=== PATIENT | female | born 1940 | race Caucasian/White ===

== ENCOUNTER → 2018-02-15 | Outpatient (CLI) | payer MEDICARE, BC ==
[~2018-02-15] MED LIST: ACET325UDC PO; ALPHA-LIPOIC ACID PO; AMLO5 PO; BOSWELIA; BOSWELIA PO; CALCIT950 PO; CARB100; CARB1TAB14 PO; CARBLEV25 PO; CHRO200 PO; CLON.5 PO; CYAN1000 PO; DHEA PO; DILT60 PO; ESOM20 PO; FEXPSEER PO; FISH1000 PO; GAS-X PO; GLUCHON PO; HYDCHL12.5 PO; HYDR1TAB94 PO; ISOMON20; ISRA5 PO; LEVSOD112 PO; LEVSOD125 PO; LIOT25 PO; MELA3 PO; MSM PO; MSM1000 PO; NEBI5 PO; NITR.6SL SL; NITRSPRAY SL; Nitrostat0.4 MG SL; PRAM.5 PO; PROLIA IM; RASA1 PO; RISE35 PO; UBID100 PO; VALS80 PO; WARF1 PO; WARF3 PO; WARF4 PO; [UNRECOGNIZED DRUG - MIXTURE] PO; [UNRECOGNIZED DRUG - OTHER]; [UNRECOGNIZED DRUG - OTHER] PO
[2018-02-16 14:16] LABS: Protein, Urine Quantitative 8.6 mg/dL (0.0-11.9)
[2018-02-16 14:19] LABS: Microalbumin, Urine Quant. 6.89 mg/L (0.000-20.000)
== END | disposition home or self-care (01) ==
LOC: LAB 13:16 → LAB FUT 02-13 15:40
PROVIDERS: Internal Medicine Nephrology
DX: N18.2 Chronic kidney disease, stage 2 (mild) (principal); D63.1 Anemia in chronic kidney disease; N25.81 Secondary hyperparathyroidism of renal origin; E55.9 Vitamin D deficiency, unspecified; E78.00 Pure hypercholesterolemia, unspecified; R76.9 Abnormal immunological finding in serum, unspecified; R94.5 Abnormal results of liver function studies; D51.8 Other vitamin B12 deficiency anemias; D52.8 Other folate deficiency anemias; D50.9 Iron deficiency anemia, unspecified
CPT/HCPCS: 81050; 82043; 84156

== ENCOUNTER → 2018-07-21 | Outpatient (CLI) | payer MEDICARE, BC ==
[2018-07-21 15:50] LABS: BASOPHILS ABSOLUTE AUTO 0.02 K/mm3 (0.00-0.23); BASOPHILS PERCENT AUTO 0 % (0-2); EOSINOPHILS ABSOLUTE AUTO 0.03 K/mm3 (0.00-0.68); EOSINOPHILS PERCENT AUTO 0 % (0-6); Hematocrit 34.9 % (33.0-51.0); Hemoglobin 11.8 g/dL (11.5-16.0); IMMATURE GRAN ABSOLUTE AUTO 0.01 K/mm3 (0.00-0.10); IMMATURE GRAN PERCENT AUTO 0 % (0-1); LYMPHOCYTES ABSOLUTE AUTO 0.92 K/mm3 (0.84-5.20); LYMPHOCYTES PERCENT AUTO 11 % (21-46); MONOCYTES ABSOLUTE AUTO 0.95 K/mm3 (0.16-1.47); MONOCYTES PERCENT AUTO 11 % (4-13); Mean Corpuscular HGB 32.6 pg (26.0-34.0); Mean Corpuscular HGB Conc 33.8 g/dL (31.5-36.5); Mean Corpuscular Volume 96 fL (80-100); Mean Platelet Volume 10.2 fL (9.1-12.4); NEUTROPHILS ABSOLUTE AUTO 6.48 K/mm3 (1.96-9.15); NEUTROPHILS PERCENT AUTO 77 % (41-73); Platelet Count 198 K/mm3 (150-400); RDW Coefficient Variation 12.5 % (11.7-14.2); RDW Standard Deviation 44.1 fL (35.1-46.3); Red Blood Cell Count 3.62 M/mm3 (3.80-5.20); White Blood Cell Count 8.41 K/mm3 (4.00-11.30)
[2018-07-21 15:55] LABS: Anion Gap 9 mmol/L (6-16); Blood Urea Nitrogen 19 mg/dL (8-24); Bun/Creatinine Ratio 27.5 (12.0-20.0); CO2, Blood 26 mmol/L (21-32); Calcium, Blood 9.1 mg/dL (8.5-10.1); Chloride, Blood 95 mmol/L (98-108); Creatinine, Blood 0.69 mg/dL (0.40-1.00); Glomerular Filtration Rate >60 (60-); Glucose, Blood 106 mg/dL (70-99); Potassium, Blood 4.3 mmol/L (3.5-5.5); Sodium, Blood 130 mmol/L (136-145)
== END | disposition home or self-care (01) ==
LOC: LAB SHORT 15:46 → LAB EV 15:46
PROVIDERS: Physician Assistant Surgical
DX: R53.83 Other fatigue (principal)
CPT/HCPCS: 80048; 85025

== ENCOUNTER 2018-11-13 16:11 | Emergency (ER) | payer MEDICARE, BC ==
[~2018-11-13] VITALS: Ht 160 cm; Wt 59.0 kg
[~2018-11-13 16:11] MED LIST changes: +CALCIUM CITRAT1 EAC6 PO; -CARB100; +CARB100 PO; +CLARITIN10 MG PO; +Isosorbide Mono30 MG PO; +LOSA50 PO; +Melatonin5 M1 PO; +OLME20 PO; +Synthroid112 MCG PO; +Voltaren100 GM TOP; +[UNRECOGNIZED DRUG - OTHER]
[2018-11-13 16:51] LABS: BASOPHILS ABSOLUTE AUTO 0.01 K/mm3 (0.00-0.23); BASOPHILS PERCENT AUTO 0 % (0-2); EOSINOPHILS PERCENT AUTO 0 % (0-6); Hematocrit 38.9 % (33.0-51.0); Hemoglobin 12.8 g/dL (11.5-16.0); IMMATURE GRAN ABSOLUTE AUTO 0.02 K/mm3 (0.00-0.10); IMMATURE GRAN PERCENT AUTO 1 % (0-1); LYMPHOCYTES ABSOLUTE AUTO 0.52 K/mm3 (0.84-5.20); LYMPHOCYTES PERCENT AUTO 14 % (21-46); MONOCYTES ABSOLUTE AUTO 0.07 K/mm3 (0.16-1.47); MONOCYTES PERCENT AUTO 2 % (4-13); Mean Corpuscular HGB 31.6 pg (26.0-34.0); Mean Corpuscular HGB Conc 32.9 g/dL (31.5-36.5); Mean Corpuscular Volume 96 fL (80-100); NEUTROPHILS ABSOLUTE AUTO 3.08 K/mm3 (1.96-9.15); NEUTROPHILS PERCENT AUTO 83 % (41-73); Platelet Count 196 K/mm3 (150-400); RDW Coefficient Variation 12.3 % (11.7-14.2); RDW Standard Deviation 43.7 fL (35.1-46.3); Red Blood Cell Count 4.05 M/mm3 (3.80-5.20)
[2018-11-13 17:10] LABS: Alanine Aminotransfer (ALT/SGP 23 U/L (12-78); Albumin/Globulin Ratio 1.1 (0.8-1.8); Alk Phos 62 U/L (50-136); Anion Gap 10 mmol/L (6-16); Aspartate Aminotrans (AST/SGOT 26 U/L (12-37); Bilirubin, Total 0.3 mg/dL (0.1-1.0); Blood Urea Nitrogen 22 mg/dL (8-24); Bun/Creatinine Ratio 38.1 (12.0-20.0); CO2, Blood 23 mmol/L (21-32); Calcium, Blood 8.7 mg/dL (8.5-10.1); Chloride, Blood 100 mmol/L (98-108); Creatinine, Blood 0.58 mg/dL (0.40-1.00); Globulin, Blood 3.6 g/dL (2.2-4.0); Glomerular Filtration Rate >60 (60-); Glucose, Blood 146 mg/dL (70-99); Potassium, Blood 3.8 mmol/L (3.5-5.5); Sodium, Blood 133 mmol/L (136-145); Total Protein, Blood 7.6 g/dL (6.4-8.2); Troponin I <0.015 ng/mL (0.000-0.040)
== END 2018-11-13 18:43 | disposition left against medical advice (07) ==
LOC: ER 16:11
PROVIDERS: Emergency Medicine
DX: Z53.21 Procedure and treatment not carried out due to patient leaving prior to being seen by health care provider (principal)
CPT/HCPCS: 36415; 71046; 80053; 84484; 85025; 93005; 93010

== ENCOUNTER 2018-11-14 06:43 | Inpatient (IN) | payer MEDICARE, BC ==
[~2018-11-14] VITALS: Ht 160 cm; Wt 63.3 kg
[2018-11-14 07:15] LABS: BASOPHILS PERCENT AUTO 0 % (0-2); EOSINOPHILS PERCENT AUTO 0 % (0-6); Hematocrit 39.4 % (33.0-51.0); Hemoglobin 13.2 g/dL (11.5-16.0); IMMATURE GRAN PERCENT AUTO 0 % (0-1); LYMPHOCYTES ABSOLUTE AUTO 0.77 K/mm3 (0.84-5.20); LYMPHOCYTES PERCENT AUTO 25 % (21-46); MONOCYTES ABSOLUTE AUTO 0.12 K/mm3 (0.16-1.47); MONOCYTES PERCENT AUTO 4 % (4-13); Mean Corpuscular HGB 31.9 pg (26.0-34.0); Mean Corpuscular HGB Conc 33.5 g/dL (31.5-36.5); Mean Corpuscular Volume 95 fL (80-100); Mean Platelet Volume 9.8 fL (9.1-12.4); NEUTROPHILS ABSOLUTE AUTO 2.23 K/mm3 (1.96-9.15); NEUTROPHILS PERCENT AUTO 72 % (41-73); Platelet Count 203 K/mm3 (150-400); RDW Coefficient Variation 12.2 % (11.7-14.2); RDW Standard Deviation 42.6 fL (35.1-46.3); Red Blood Cell Count 4.14 M/mm3 (3.80-5.20); White Blood Cell Count 3.12 K/mm3 (4.00-11.30)
[2018-11-14 07:36] LABS: International Normalized Ratio 2.31; Prothrombin Time Results 22.7 Sec (9.7-11.5)
[2018-11-14 07:45] LABS: Alanine Aminotransfer (ALT/SGP 30 U/L (12-78); Albumin/Globulin Ratio 1.1 (0.8-1.8); Alk Phos 65 U/L (50-136); Anion Gap 9 mmol/L (6-16); Aspartate Aminotrans (AST/SGOT 33 U/L (12-37); Bilirubin, Total 0.4 mg/dL (0.1-1.0); Blood Urea Nitrogen 20 mg/dL (8-24); Bun/Creatinine Ratio 36.6 (12.0-20.0); CO2, Blood 25 mmol/L (21-32); Chloride, Blood 101 mmol/L (98-108); Creatinine, Blood 0.55 mg/dL (0.40-1.00); Globulin, Blood 3.8 g/dL (2.2-4.0); Glomerular Filtration Rate >60 (60-); Glucose, Blood 150 mg/dL (70-99); Sodium, Blood 135 mmol/L (136-145); Total Protein, Blood 7.8 g/dL (6.4-8.2); Troponin I 0.336 ng/mL (0.000-0.040)
[2018-11-15 04:58] LABS: International Normalized Ratio 2.92; Prothrombin Time Results 28.3 Sec (9.7-11.5)
[2018-11-16 05:10] LABS: International Normalized Ratio 2.45
[2018-11-17 05:09] LABS: International Normalized Ratio 1.43; Prothrombin Time Results 14.4 Sec (9.7-11.5)
[2018-11-18 07:09] LABS: International Normalized Ratio 1.18
[2018-11-19 04:24] LABS: International Normalized Ratio 1.1; Prothrombin Time Results 11.3 Sec (9.7-11.5)
[2018-11-19 22:57] LABS: Hematocrit 37.4 % (33.0-51.0); Hemoglobin 12.6 g/dL (11.5-16.0)
[2018-11-20 05:03] LABS: BASOPHILS ABSOLUTE AUTO 0.02 K/mm3 (0.00-0.23); BASOPHILS PERCENT AUTO 0 % (0-2); EOSINOPHILS ABSOLUTE AUTO 0.11 K/mm3 (0.00-0.68); EOSINOPHILS PERCENT AUTO 2 % (0-6); Hematocrit 31.4 % (33.0-51.0); Hemoglobin 10.4 g/dL (11.5-16.0); IMMATURE GRAN ABSOLUTE AUTO 0.02 K/mm3 (0.00-0.10); IMMATURE GRAN PERCENT AUTO 0 % (0-1); LYMPHOCYTES ABSOLUTE AUTO 2.27 K/mm3 (0.84-5.20); LYMPHOCYTES PERCENT AUTO 34 % (21-46); MONOCYTES ABSOLUTE AUTO 0.65 K/mm3 (0.16-1.47); MONOCYTES PERCENT AUTO 10 % (4-13); Mean Corpuscular HGB 31.8 pg (26.0-34.0); Mean Corpuscular HGB Conc 33.1 g/dL (31.5-36.5); Mean Corpuscular Volume 96 fL (80-100); Mean Platelet Volume 10.2 fL (9.1-12.4); NEUTROPHILS ABSOLUTE AUTO 3.64 K/mm3 (1.96-9.15); NEUTROPHILS PERCENT AUTO 54 % (41-73); Platelet Count 219 K/mm3 (150-400); RDW Coefficient Variation 12.3 % (11.7-14.2); RDW Standard Deviation 43.2 fL (35.1-46.3); Red Blood Cell Count 3.27 M/mm3 (3.80-5.20); White Blood Cell Count 6.71 K/mm3 (4.00-11.30)
[2018-11-20 05:21] LABS: International Normalized Ratio 1.72; Prothrombin Time Results 17.2 Sec (9.7-11.5)
[2018-11-20 05:35] LABS: Alanine Aminotransfer (ALT/SGP 26 U/L (12-78); Albumin/Globulin Ratio 1.1 (0.8-1.8); Alk Phos 49 U/L (50-136); Anion Gap 8 mmol/L (6-16); Aspartate Aminotrans (AST/SGOT 38 U/L (12-37); Bilirubin, Total 0.4 mg/dL (0.1-1.0); Blood Urea Nitrogen 12 mg/dL (8-24); Bun/Creatinine Ratio 22.3 (12.0-20.0); CO2, Blood 26 mmol/L (21-32); Calcium, Blood 8.1 mg/dL (8.5-10.1); Chloride, Blood 102 mmol/L (98-108); Creatinine, Blood 0.54 mg/dL (0.40-1.00); Globulin, Blood 2.8 g/dL (2.2-4.0); Glomerular Filtration Rate >60 (60-); Glucose, Blood 96 mg/dL (70-99); Potassium, Blood 4.1 mmol/L (3.5-5.5); Sodium, Blood 136 mmol/L (136-145); Total Protein, Blood 5.8 g/dL (6.4-8.2)
[2018-11-20] MEDS ORDERED: ASPI81CH PO (10:27)
[2018-11-20] MEDS ORDERED: ACET325 PO (10:28)
[2018-11-20] MEDS ORDERED: ATOR80 PO (10:29)
[2018-11-20] MEDS ORDERED: CLOP75 PO (10:29)
[2018-11-20] MEDS ORDERED: CARV3.125 PO (10:29)
[2018-11-20] MEDS ORDERED: PROLIA60 MG/1 ML SC (11:17)
[2018-11-20] MEDS ORDERED: ENOX100I SC (11:19)
== END 2018-11-20 12:25 | disposition home or self-care (01) | DRG 248 ==
LOC: ER 06:43 → ERHOLD 06:44 → MEDS 11:15 → PCU 11-17 12:11 → MEDS 11-19 16:51 → ENPENDDIS 11-20 09:52 → MEDS 11-20 12:25
PROVIDERS: Emergency Medicine; Hospitalist; Internal Medicine; Internal Medicine Interventional Cardiology; Nurse Practitioner Acute Care
PROC: 02703DZ Dilation of Coronary Artery, One Artery with Intraluminal Device, Percutaneous Approach (ICD-10-PCS; principal; 2018-11-17)
PROC: 02703ZZ Dilation of Coronary Artery, One Artery, Percutaneous Approach (ICD-10-PCS; 2018-11-17)
PROC: 4A023N7 Measurement of Cardiac Sampling and Pressure, Left Heart, Percutaneous Approach (ICD-10-PCS; 2018-11-17)
PROC: B2111ZZ Fluoroscopy of Multiple Coronary Arteries using Low Osmolar Contrast (ICD-10-PCS; 2018-11-17)
DX: I25.10 Atherosclerotic heart disease of native coronary artery without angina pectoris (principal); I21.4 Non-ST elevation (NSTEMI) myocardial infarction; I26.99 Other pulmonary embolism without acute cor pulmonale; D68.59 Other primary thrombophilia; I44.7 Left bundle-branch block, unspecified; Z86.718 Personal history of other venous thrombosis and embolism; K21.9 Gastro-esophageal reflux disease without esophagitis; I48.91 Unspecified atrial fibrillation; Z79.01 Long term (current) use of anticoagulants; G20 Parkinson's disease; E03.9 Hypothyroidism, unspecified; I10 Essential (primary) hypertension; S50.02XA Contusion of left elbow, initial encounter
CPT/HCPCS: 36415; 71045; 80053; 83690; 84484; 85014; 85018; 85025; 85347; 85379; 85610; 85730; 92920; 92928; 92978; 93005; 93010; 93308; 93321; 93458; 96374; 96375; 99152; 99153; 99285-25; C1725; C1753; C1769; C1876; C1887; C1894; G0378; J0461; J1200; J1644; J1650; J2250; J2270; J2405; J3010; J7030; J7040; Q9967

== ENCOUNTER 2019-02-27 01:00 | Day surgery (SDC) | payer MEDICARE, BC ==
[~2019-02-27 01:00] MED LIST changes: +ACET325 PO; +ASPI81CH PO; +ATOR80 PO; +CARV3.125 PO; +CLOP75 PO; +ENOX100I SC; +PROLIA60 MG/1 ML SC
[2019-02-27] MEDS ORDERED: METO25ER PO (10:53)
--- NOTE | 2019-02-27 11:01 | NUR ---
PT OBSERVED FOR 16 MINUTES AFTER INJECTION OF NEW MEDICATION, NO S/S OF REACTION. PT HAS A SCHEDULED LAB TIME AND LEFT TO MAKE TIME ALLOTED. PT LEFT UNIT IN STABLE CONDITON
== END 2019-02-27 10:25 | disposition home or self-care (01) ==
LOC: ATC 01:00
DX: I10 Essential (primary) hypertension (principal); I25.10 Atherosclerotic heart disease of native coronary artery without angina pectoris; I48.0 Paroxysmal atrial fibrillation; I25.2 Old myocardial infarction; E03.9 Hypothyroidism, unspecified; Z79.899 Other long term (current) drug therapy; Z79.82 Long term (current) use of aspirin; Z79.02 Long term (current) use of antithrombotics/antiplatelets; Z88.2 Allergy status to sulfonamides; Z88.1 Allergy status to other antibiotic agents; Z88.8 Allergy status to other drugs, medicaments and biological substances
CPT/HCPCS: 36415; 80400; 82533; 96372; J0834

== ENCOUNTER 2019-03-27 10:26 | Emergency (ER) | payer MEDICARE, BC ==
[~2019-03-27] VITALS: Ht 160 cm; Wt 54.4 kg
[~2019-03-27 10:26] MED LIST changes: +METO25ER PO
[2019-03-27] MEDS ORDERED: LEVSOD125 PO (10:50)
[2019-03-27] MEDS ORDERED: LEVSOD112 PO (10:50)
[2019-03-27] MEDS ORDERED: WARF3 PO (10:51)
[2019-03-27] MEDS ORDERED: WARF2 PO (10:51)
[2019-03-27] MEDS ORDERED: Zantac150 MG (10:52)
[2019-03-27] MEDS ORDERED: METO25ER PO (10:52)
[2019-03-27 11:48] LABS: BASOPHILS ABSOLUTE AUTO 0.01 K/mm3 (0.00-0.23); BASOPHILS PERCENT AUTO 0 % (0-2); EOSINOPHILS ABSOLUTE AUTO 0.04 K/mm3 (0.00-0.68); EOSINOPHILS PERCENT AUTO 1 % (0-6); IMMATURE GRAN ABSOLUTE AUTO 0.02 K/mm3 (0.00-0.10); IMMATURE GRAN PERCENT AUTO 0 % (0-1); LYMPHOCYTES ABSOLUTE AUTO 1.34 K/mm3 (0.84-5.20); LYMPHOCYTES PERCENT AUTO 17 % (21-46); MONOCYTES ABSOLUTE AUTO 0.85 K/mm3 (0.16-1.47); MONOCYTES PERCENT AUTO 11 % (4-13); Mean Corpuscular HGB 31.3 pg (26.0-34.0); Mean Corpuscular HGB Conc 32.4 g/dL (31.5-36.5); Mean Corpuscular Volume 97 fL (80-100); Mean Platelet Volume 10.1 fL (9.1-12.4); NEUTROPHILS ABSOLUTE AUTO 5.74 K/mm3 (1.96-9.15); NEUTROPHILS PERCENT AUTO 72 % (41-73); Platelet Count 194 K/mm3 (150-400); RDW Coefficient Variation 12.8 % (11.7-14.2); RDW Standard Deviation 45.2 fL (35.1-46.3); Red Blood Cell Count 3.52 M/mm3 (3.80-5.20)
[2019-03-27 12:11] LABS: International Normalized Ratio 3.18; Prothrombin Time Results 30.3 Sec (9.7-11.5)
== END 2019-03-27 12:36 | disposition home or self-care (01) ==
LOC: ER 10:26
PROVIDERS: Emergency Medicine; Physician Assistant
DX: S09.90XA Unspecified injury of head, initial encounter (principal); S41.111A Laceration without foreign body of right upper arm, initial encounter; W01.198A Fall on same level from slipping, tripping and stumbling with subsequent striking against other object, initial encounter; Z88.8 Allergy status to other drugs, medicaments and biological substances; Z88.1 Allergy status to other antibiotic agents; Z88.0 Allergy status to penicillin; Z88.2 Allergy status to sulfonamides; Z88.5 Allergy status to narcotic agent; Z79.899 Other long term (current) drug therapy; Z79.01 Long term (current) use of anticoagulants; Z79.82 Long term (current) use of aspirin
CPT/HCPCS: 36415; 70450; 85025; 85610; 90471; 90714; 99284-25

== ENCOUNTER 2019-05-07 16:43 | Emergency (ER) | payer MEDICARE, BC ==
[~2019-05-07] VITALS: Ht 160 cm; Wt 56.2 kg
[~2019-05-07 16:43] MED LIST changes: -ASPI81CH PO; +Aspirin EC81 MG PO; +MIRAPEX ER1.5 MG PO; -PRAM.5 PO; +WARF2 PO; +Zantac150 MG PO
[2019-05-07 17:34] LABS: BASOPHILS ABSOLUTE AUTO 0.02 K/mm3 (0.00-0.23); BASOPHILS PERCENT AUTO 0 % (0-2); EOSINOPHILS ABSOLUTE AUTO 0.09 K/mm3 (0.00-0.68); EOSINOPHILS PERCENT AUTO 2 % (0-6); Hematocrit 33.6 % (33.0-51.0); Hemoglobin 10.8 g/dL (11.5-16.0); IMMATURE GRAN ABSOLUTE AUTO 0.01 K/mm3 (0.00-0.10); IMMATURE GRAN PERCENT AUTO 0 % (0-1); LYMPHOCYTES ABSOLUTE AUTO 1.85 K/mm3 (0.84-5.20); LYMPHOCYTES PERCENT AUTO 33 % (21-46); MONOCYTES ABSOLUTE AUTO 0.61 K/mm3 (0.16-1.47); MONOCYTES PERCENT AUTO 11 % (4-13); Mean Corpuscular HGB 31.8 pg (26.0-34.0); Mean Corpuscular HGB Conc 32.1 g/dL (31.5-36.5); Mean Corpuscular Volume 99 fL (80-100); Mean Platelet Volume 9.8 fL (9.1-12.4); NEUTROPHILS PERCENT AUTO 54 % (41-73); Platelet Count 194 K/mm3 (150-400); RDW Coefficient Variation 13.4 % (11.7-14.2); RDW Standard Deviation 49.2 fL (35.1-46.3); White Blood Cell Count 5.58 K/mm3 (4.00-11.30)
[2019-05-07 17:49] LABS: Alanine Aminotransfer (ALT/SGP 25 U/L (12-78); Albumin, Blood 3.3 g/dL (3.4-5.0); Albumin/Globulin Ratio 1.2 (0.8-1.8); Alk Phos 58 U/L (50-136); Anion Gap 3 mmol/L (6-16); Aspartate Aminotrans (AST/SGOT 30 U/L (12-37); Bilirubin, Total 0.5 mg/dL (0.1-1.0); Blood Urea Nitrogen 16 mg/dL (8-24); Bun/Creatinine Ratio 20.2 (12.0-20.0); CO2, Blood 29 mmol/L (21-32); Calcium, Blood 8.9 mg/dL (8.5-10.1); Chloride, Blood 105 mmol/L (98-108); Creatinine, Blood 0.79 mg/dL (0.40-1.00); Globulin, Blood 2.7 g/dL (2.2-4.0); Glomerular Filtration Rate >60 (60-); Glucose, Blood 96 mg/dL (70-99); Potassium, Blood 3.6 mmol/L (3.5-5.5); Sodium, Blood 137 mmol/L (136-145); Troponin I <0.015 ng/mL (0.000-0.040)
== END 2019-05-07 18:20 | disposition home or self-care (01) ==
LOC: ER 16:43
PROVIDERS: Physician Assistant
DX: R07.89 Other chest pain (principal)
CPT/HCPCS: 71045; 80053; 84484; 85025; 93005; 93010; 99285-25

== ENCOUNTER 2019-05-27 14:31 | Observation (INO) | payer MEDICARE, BC ==
[~2019-05-27] VITALS: Ht 165.1 cm; Wt 56.3 kg
[2019-05-27] MEDS ORDERED: TICA90TA (14:46)
[2019-05-27 15:53] LABS: BASOPHILS ABSOLUTE AUTO 0.02 K/mm3 (0.00-0.23); BASOPHILS PERCENT AUTO 0 % (0-2); EOSINOPHILS ABSOLUTE AUTO 0.12 K/mm3 (0.00-0.68); EOSINOPHILS PERCENT AUTO 2 % (0-6); Hematocrit 35.9 % (33.0-51.0); Hemoglobin 11.3 g/dL (11.5-16.0); IMMATURE GRAN ABSOLUTE AUTO 0.01 K/mm3 (0.00-0.10); IMMATURE GRAN PERCENT AUTO 0 % (0-1); LYMPHOCYTES ABSOLUTE AUTO 1.15 K/mm3 (0.84-5.20); LYMPHOCYTES PERCENT AUTO 22 % (21-46); MONOCYTES ABSOLUTE AUTO 0.56 K/mm3 (0.16-1.47); MONOCYTES PERCENT AUTO 11 % (4-13); Mean Corpuscular HGB 31.7 pg (26.0-34.0); Mean Corpuscular HGB Conc 31.5 g/dL (31.5-36.5); Mean Corpuscular Volume 101 fL (80-100); Mean Platelet Volume 10.3 fL (9.1-12.4); NEUTROPHILS ABSOLUTE AUTO 3.49 K/mm3 (1.96-9.15); NEUTROPHILS PERCENT AUTO 65 % (41-73); Platelet Count 187 K/mm3 (150-400); RDW Coefficient Variation 13.3 % (11.7-14.2); RDW Standard Deviation 49.6 fL (35.1-46.3); Red Blood Cell Count 3.57 M/mm3 (3.80-5.20); White Blood Cell Count 5.35 K/mm3 (4.00-11.30)
[2019-05-27 16:07] LABS: Alanine Aminotransfer (ALT/SGP 30 U/L (12-78); Albumin, Blood 3.1 g/dL (3.4-5.0); Albumin/Globulin Ratio 0.9 (0.8-1.8); Alk Phos 58 U/L (50-136); Anion Gap 4 mmol/L (6-16); Aspartate Aminotrans (AST/SGOT 34 U/L (12-37); Bilirubin, Total 0.5 mg/dL (0.1-1.0); Blood Urea Nitrogen 8 mg/dL (8-24); Bun/Creatinine Ratio 13.7 (12.0-20.0); CO2, Blood 27 mmol/L (21-32); Calcium, Blood 8.2 mg/dL (8.5-10.1); Chloride, Blood 104 mmol/L (98-108); Creatinine, Blood 0.58 mg/dL (0.40-1.00); Globulin, Blood 3.4 g/dL (2.2-4.0); Glomerular Filtration Rate >60 (60-); Glucose, Blood 96 mg/dL (70-99); Potassium, Blood 3.9 mmol/L (3.5-5.5); Sodium, Blood 135 mmol/L (136-145); Total Protein, Blood 6.5 g/dL (6.4-8.2)
[2019-05-27] MEDS ORDERED: FOLI1 PO (17:01)
[2019-05-27] MEDS ORDERED: CARB100 PO (17:08)
[2019-05-27 17:09] LABS: International Normalized Ratio 1.42; Prothrombin Time Results 14.6 Sec (9.7-11.5)
[2019-05-27] MEDS ORDERED: Nitroglycerin0.4 MG SL (17:52)
[2019-05-27] MEDS ORDERED: LOSA25 PO (18:02)
[2019-05-27 18:43] LABS: Creatine Kinase MB 3.4 ng/mL (0.0-3.6); Creatine Kinase MB Index 3.8 (0.0-4.0)
[2019-05-27] MEDS ORDERED: BRILINTA90 MG PO (20:47)
[2019-05-27 23:31] LABS: Creatine Kinase MB 21.4 ng/mL (0.0-3.6); Creatine Kinase MB Index 7.3 (0.0-4.0)
--- NOTE | 2019-05-28 01:47 | NUR ---
ASSUMED CARE OF PATIENT AT APPROXIMATELY 2022 FROM ED RN SAM. PATIENT ARRIVED TO UNIT VIA STRETCHER; TRANSFER WITH ASSIST FROM ED TO PCU STRETCHER; ARRIVED WITH PATIENT; VERY ATTENTIVE. PATIENT ALERT AND ORIENTED; REPROTS BEING TIRED AND REPORTS CHEST PAIN 5/10 THAT FEELS LIKE "HOT IRONS WITH SPIKES IN CHEST"; WITHIN AN HOUR OF BEING IN UNIT PATIENT REPORTS CHEST PAIN HAD DECREASED TO 3/10; PATIENT REPORTS SAME CHEST PAIN THAT SHE WAS ADMITTED WITH BUT HAD IMPROVED. PATIENT ALSO HAS SOME UNCONTROLLED MOVEMENTS THAT SHE REPORTS IS NOT NORMAL FOR HER. PATIENT DENIES NUMBNESS, TINGLING, DIZZINESS NAUSEA. PATIENT WAS HUNGRY UPON ARRIVAL. AFIB W/ BBB ON TELE; OXYGEN SATURATION ABOVE 90% ON ROOM AIR. PATIENT REPORTS SHE NORMALLY DRINK 5 OUNCES OF WINE A NIGHT; LAST DRINK 05/26 PM; RECENT D/C FROM [facility] FOR ANGIO WITH STENTS. ADMISSION COMPLETE; PIV INFUSING PER ORDER. PATIENT IS ONE ASSIST OUT OF BED; PATIENT'S REPORTED TO PCU CN THAT PATIENT NEEDS GAIT BELT. PATIENT'S REPORTED HE WAS GOING HOME; UPON ARRIVAL TO UNIT PATIENT'S REPORTS MAY HAVE SOME WINE; DISCUSSED WITH PCU LINUX SERVER ENGINEER HANSA House EDUCATED PATIENT AND ON HOSPITAL ALCOHOL POLICY; PATIENT EXPRESSED UNDERSTANDING; LATER DOOR FOUND CLOSED AND THIS RN VERIFIED AGAIN THAT PATIENT DID NOT DRINK BUT PATIENT EYES CLOSED AND APPEARED TO BE SLEEPING; PATIENT'S STATES "I'LL BE RINSING THIS OUT NOW", PATIENT'S WAS HOLDING CUP WITH UNKNOWN LIQUID INSIDE. PATIENTS 2ND TROPONIN CRITICALLY HIGH; SONY ALMONTE CALLED; ORDERS RECIEVED TO START HEPARIN. PATIENT WAS NSR ON EKG IN ED; AFIB WITH BBB ON TELE SINCE ARRIVAL TO UNIT; SONY ALMONTE NOTIFIED; ORDERS FOR 5MG OT IV LOPRESSOR IF SBP ABOVE 110; SBP WAS ABOVE [address] DYE WAS BEDSIDE; HOLD LOPRESSOR BUT START HEPARIN GTT. PATIENT CURRENTLY RESTING IN BED; CALL LIGHT IN REACH; BED IN LOWEST POSISTION; BED ALARM ON; WILL CONTINUE TO MONITOR AND ASSESS UNTIL END OF SHIFT.
--- NOTE | 2019-05-28 05:06 | NUR ---
PATIENT SLEPT ABOUT FIVE HOURS; REPORTS CP IS GONE; MILD DISCOMFORT AT TIMES; HEPARIN GTT. PATIENT HAS BEEN NPO SINCE 3 AM; CARDIO CONSULT CALLED IN; DR. DELACRUZ TO SEE PATEINT THIS MORNING; PATIENT'S REPORTS HE DOESNT WANT ANY INTERVENTIONS DONE HERE; HE WOULD LIKE INTERVENTIONS DONE IN PB WITH THE DOCTOR THAT DID THE ANGIO ON 05/26; PATIENT DENIES VISION CHANGES THIS AM; REPORTS FEELING BETTER; NO MORE UNCONTROLLED MOVEMENTS NOTED. PATIENT CURRENTLY RESTING IN BED; CALL LIGHT IN REACH; BED IN LOWEST POSISSTIO;N; WILL CONTINUE TO MONITOR AND ASSESS UNTIL END OF SHIFT.
[2019-05-28 05:10] LABS: Hematocrit 30.7 % (33.0-51.0); Hemoglobin 10.1 g/dL (11.5-16.0); Mean Corpuscular HGB 31.9 pg (26.0-34.0); Mean Corpuscular HGB Conc 32.9 g/dL (31.5-36.5); Mean Platelet Volume 10.3 fL (9.1-12.4); Platelet Count 165 K/mm3 (150-400); RDW Coefficient Variation 13.2 % (11.7-14.2); RDW Standard Deviation 47.1 fL (35.1-46.3); Red Blood Cell Count 3.17 M/mm3 (3.80-5.20); White Blood Cell Count 5.79 K/mm3 (4.00-11.30)
[2019-05-28 05:11] LABS: Mean Corpuscular Volume 97 fL (80-100)
[2019-05-28 05:24] LABS: International Normalized Ratio 1.76; Prothrombin Time Results 17.7 Sec (9.7-11.5)
[2019-05-28 05:38] LABS: Anion Gap 4 mmol/L (6-16); Blood Urea Nitrogen 6 mg/dL (8-24); Bun/Creatinine Ratio 10.8 (12.0-20.0); CO2, Blood 27 mmol/L (21-32); CPK Creatine Kinase 371 U/L (26-193); Calcium, Blood 7.6 mg/dL (8.5-10.1); Chloride, Blood 108 mmol/L (98-108); Creatine Kinase MB 33.9 ng/mL (0.0-3.6); Creatine Kinase MB Index 9.1 (0.0-4.0); Creatinine, Blood 0.56 mg/dL (0.40-1.00); Glomerular Filtration Rate >60 (60-); Glucose, Blood 123 mg/dL (70-99); Potassium, Blood 3.8 mmol/L (3.5-5.5); Sodium, Blood 139 mmol/L (136-145)
--- NOTE | 2019-05-28 08:35 | NUR ---
INITIAL ASSESSMENT: Patient is resting comfortably in bed visiting with . Pt is alert and OX3. Patient reports she is having 3/10 Chest burning, patient states "this has been going on since I arrived at the hospital." Heart rate is irregular, A-Fib with a BBB in the 60s. Lung sounds clear through out, biox wnl on RA. BT+. PPP. No edema present at this time. VSS. Patient has heparin gtt running at 13U/kg/hr. Patient has arm borad to right wrist for post-angio precautions. Bandaid to the right radial site, CDI no drainage noted. AM meds given whole with water without difficulty. Patient and deny needs at this time. Call light in reach, will continue to monitor.
--- NOTE | 2019-05-28 09:15 | NUR ---
Dr. Elmore here to see the patient. requesting records from recent angiogram. Carotid US ordered. Alanis GALLARDO faxed info release form faxed to [facility], radiology dept notified we are waiting for [facility] to push images. Radiology has pet sitting cell phone number and will notify him when the images arrive. Pt and deny needs at this time, call light in reach. Will continue to monitor.
--- NOTE | 2019-05-28 09:28 | NUR ---
Call to [facility] records regarding obtaining the pt's films for most recent angiogram. Spoke with Maria Dolores who said that they could be pushed once a release of info had been faxed to them.
--- NOTE | 2019-05-28 10:43 | NUR ---
LAB CALLED WITH A CRITICAL PTT RESULT. PHARMACIST CALLED SHORTLY AFTER AND ORDERED TO STOP HEP GTT FOR ONE HOUR. HEP GTT STOPPED, WILL AWAIT FURTHER ORDERS.
--- NOTE | 2019-05-28 12:00 | NUR ---
ASSESSMENT: PT IS SITTING UP IN THE CHAIR EATING LUNCH. PT STATES SHE HAS BEEN HAVING "HOLLIGRAMS" INTERMITTENTLY. WHEN ASKED TO DESCRIBE PT STATES SHE WILL REACH FOR SOMETHING THAT ISN'T CLOSE SHE THINK IT IS. WE DISCUSSED AND SHE AGREED THAT IT MAY BE MORE OF A DEPTH PRECEPTION PROBLEM. PT STATES IN THE PAST SHE DID HAVE SOME TROUBLE WITH DOUBLE VISION. VSS. PO MEDS GIVEN. HEP GTT RESUMED AT 11U/KG/HR-VERIFIED WITH AM RN. PT DENIES OTHER NEEDS AT THIS TIME. CALL LIGHT IN REACH. WILL CONTINUE TO MONTIOR.
--- NOTE | 2019-05-28 16:20 | NUR ---
NO CHANGES FROM INITIAL ASSESSMENT. DR. DELACRUZ HAS DECIDED THAT THE PATIENT MAY NEED ANOTHER ANGIOGRAM, THIS WILL HAVE TO WAIT UNTIL THE AM BECAUSE THE PATIENT ATE LUNCH. PATIENT AND FAMILY ARE UNDECIDED IF THEY WANT TO PROCEED WITH A SECOND PROCEDURE THIS CLOSE TO THE INITIAL PROCEDURE. VSS. WILL CONTINUE TO MONITOR.
--- NOTE | 2019-05-28 18:10 | NUR ---
PATIENT HAS BEEN RESTING TODAY. DR. DELACRUZ CAME TO SEE THE PATIENT TODAY, HE WAS ABLE TO REVIEW THE PATIENTS MOST RECENT ANGIOGRAM AND WOULD LIKE TO PROCEED WITH ANOTHER ANGIOGRAM IN THE AM. PATIENT AND FAMILY ARE UNSURE IF THEY WANT TO PROCEED WITH ANOTHER ANGIOGRAM SINCE IT HAS ONYL BEEN A FEW DAYS SINCE THE LAST ANGIOGRAM WITH STENT PLACEMENT. PT HAD US OF BILATERAL CAROTIDS, CLEAR PER DRESSAGE JUDGE. PATIENT CONTINUES TO HAVE SOME MINOR VISUAL DISTURBANCES, SHE STATES HER DEPTH PRECEPTION IS OFF. HP GTT INFUSING AT 11 U/KG/HR, AWAITING ORDER CHANGES FROM PHARMACY. VSS THROUGH OUT THE SHIFT. WILL REPORT TO ONCOMING SHIFT.
--- NOTE | 2019-05-29 00:18 | NUR ---
ASSUMED CARE AT 1900. SITTING IN CHAIR AND VERY COMFORTABLE VISITING W/ FAMILY. DENIES ANY VISUAL IMPAIRMENT OR DEPTH PERCEPTION AT THIS TIME. NEURO CHECK WNL. REVIEWED ALL MOVEMENT AND NO REPORT OF ANY DEFICITS IN ANY TYPE OV MOVEMENT. REPORTS TRYING TO CRAWL INTO BED AND LIFT HEAVY COVERS AND THIS PRODUCED 2.5/10 CP NON RADIATING. RELIEF W/ 1 NTG SL. VS WNL .OFF TO SLEEP POST MELATONIN. EASILY ANXIOUS AND TALKED ALOT ABOUT CONCERNS AND REVIEWED DECISIONS TO BE MADE. WILL BE NPO NOW AND AGREES TO WEAR 2L OF O2 WHILE SLEEPING TONIGHT
--- NOTE | 2019-05-29 01:17 | NUR ---
OPENING NOTE RECEIVED REPORT FROM HANSA GALLARDO AND ASSUMED PT CARE. PT IS RESTING IN BED WITH EYES CLOSED. VERIFIED HEPARIN GTT AT THE BEDSIDE, RUNNING AT 11 U/KG/HR PER CURRENT ORDER. NO ACUTE CONCERNS AT THIS TIME. WILL CONTINUE TO MONITOR AND CONTINUE PLAN OF CARE.
[2019-05-29 04:21] LABS: International Normalized Ratio 2.27; Prothrombin Time Results 22.3 Sec (9.7-11.5)
--- NOTE | 2019-05-29 06:32 | NUR ---
PT HAS BEEN AWAKE MOST OF THE NIGHT, STATES "I THINK I GOT TOO MUCH SLEEP YESTERDAY". C/O CHEST PAIN X 1 RATED 2.5-3/10, RESOLVED WITH NITRO X 1 WITH GOOD EFFECT. DENIES OTHER COMPLAINTS. OVERALL STATUS: UNCHANGED WITH POSSIBLE PLAN FOR ANGIO TODAY. PT HAS BEEN NPO SINCE MIDNIGHT, STATES "I'N NOT READY FOR ANOTHER PROCEDURE YET". ADVISED OF RISKS TO DELAYING ADDITIONAL STENT PLACEMENT, PT STATES UNDERSTANDING AND CONTINUES TO ASSERT THAT SHE IS NOT READY AT THIS TIME. NO ACUTE CONCERNS THIS, WILL PROVIDE BEDSIDE REPORT TO DAY SHIFT RN.
--- NOTE | 2019-05-29 07:40 | NUR ---
Bedside report received from Deisy Gaffney RN. The pt is awake, alert, and cheerful. Wearing oxygen at 2 l/min since she had chest discomfort last night, I'm told. At this time, she denies any chest pain or dyspnea, and her appearance matches this statement. States that her vision is "almost back to normal". Assisted her to the bathroom, and she denies any dizzyness, lightheadedness or discomfort with the activity. Heparin drip verified at the bedside with 2 RNs. Notified at 0735 that the pt had converted to Normal sinus rhythm during a pause in telemetry monitoring because the telemetry box was being changed by the PCT. Verified at this time that the box number matches the patient it is associated with at the monitors.
--- NOTE | 2019-05-29 11:08 | NUR ---
1000 Dr. Hogan, control specialist, came to speak with Jameson, the pt's at the bedside. He will discuss the pt's case with Dr. Young today and decide on plan going forward for the pt's treatment, which possibly may be to discharge her and have her follow up with Dr. Arellano for another stent placement at [facility].
[2019-05-29] MEDS ORDERED: CITRACAL + D M1 EACH PO (13:05)
[2019-05-29] MEDS ORDERED: OMEG1CAP30 PO (13:06)
== END 2019-05-29 14:00 | disposition home or self-care (01) ==
LOC: ER 14:31 → PCU 14:32
PROVIDERS: Nurse Practitioner Acute Care; Physician Assistant; ADMIT Internal Medicine
DX: I21.4 Non-ST elevation (NSTEMI) myocardial infarction (principal); H53.461 Homonymous bilateral field defects, right side; G43.109 Migraine with aura, not intractable, without status migrainosus; R06.00 Dyspnea, unspecified; I10 Essential (primary) hypertension; D68.59 Other primary thrombophilia; G20 Parkinson's disease; E03.9 Hypothyroidism, unspecified; I48.0 Paroxysmal atrial fibrillation; K21.9 Gastro-esophageal reflux disease without esophagitis; I44.7 Left bundle-branch block, unspecified; M81.0 Age-related osteoporosis without current pathological fracture; I25.10 Atherosclerotic heart disease of native coronary artery without angina pectoris; Z86.711 Personal history of pulmonary embolism; Z95.5 Presence of coronary angioplasty implant and graft; Z85.820 Personal history of malignant melanoma of skin; Z86.718 Personal history of other venous thrombosis and embolism; Z79.01 Long term (current) use of anticoagulants; Z79.899 Other long term (current) drug therapy; Z79.82 Long term (current) use of aspirin; Z88.6 Allergy status to analgesic agent; Z88.4 Allergy status to anesthetic agent; Z88.1 Allergy status to other antibiotic agents; Z88.5 Allergy status to narcotic agent; Z88.2 Allergy status to sulfonamides; Z88.8 Allergy status to other drugs, medicaments and biological substances
CPT/HCPCS: 36415; 70450; 71045; 80048; 80053; 82550; 82553; 83735; 84484; 85025; 85027; 85379; 85610; 85730; 93005; 93010; 93306; 93880; 96361; 96365; 96366; 96375; 96376; 99285-25; G0378; J0780; J1200; J1644; J2405; J3010; J3475; J7030

== ENCOUNTER 2019-05-31 17:37 | Observation (INO) | payer MEDICARE, BC ==
[~2019-05-31] VITALS: Ht 160 cm; Wt 57.2 kg
[~2019-05-31 17:37] MED LIST changes: +BRILINTA90 MG PO; +CITRACAL + D M1 EACH PO; +FOLI1 PO; +LOSA25 PO; +Nitroglycerin0.4 MG SL; +OMEG1CAP30 PO; +TICA90TA
[2019-05-31 18:24] LABS: BASOPHILS ABSOLUTE AUTO 0.01 K/mm3 (0.00-0.23); BASOPHILS PERCENT AUTO 0 % (0-2); EOSINOPHILS ABSOLUTE AUTO 0.15 K/mm3 (0.00-0.68); EOSINOPHILS PERCENT AUTO 3 % (0-6); Hematocrit 36.5 % (33.0-51.0); Hemoglobin 11.8 g/dL (11.5-16.0); IMMATURE GRAN ABSOLUTE AUTO 0.02 K/mm3 (0.00-0.10); IMMATURE GRAN PERCENT AUTO 0 % (0-1); LYMPHOCYTES ABSOLUTE AUTO 1.26 K/mm3 (0.84-5.20); LYMPHOCYTES PERCENT AUTO 21 % (21-46); MONOCYTES ABSOLUTE AUTO 0.64 K/mm3 (0.16-1.47); MONOCYTES PERCENT AUTO 11 % (4-13); Mean Corpuscular HGB 32.1 pg (26.0-34.0); Mean Corpuscular HGB Conc 32.3 g/dL (31.5-36.5); Mean Corpuscular Volume 99 fL (80-100); NEUTROPHILS PERCENT AUTO 65 % (41-73); Platelet Count 208 K/mm3 (150-400); RDW Coefficient Variation 13.4 % (11.7-14.2); RDW Standard Deviation 49.7 fL (35.1-46.3); Red Blood Cell Count 3.68 M/mm3 (3.80-5.20); White Blood Cell Count 5.88 K/mm3 (4.00-11.30)
[2019-05-31 18:48] LABS: Alanine Aminotransfer (ALT/SGP 45 U/L (12-78); Albumin, Blood 3.4 g/dL (3.4-5.0); Alk Phos 70 U/L (50-136); Anion Gap 5 mmol/L (6-16); Aspartate Aminotrans (AST/SGOT 109 U/L (12-37); Bilirubin, Total 0.5 mg/dL (0.1-1.0); Blood Urea Nitrogen 17 mg/dL (8-24); Bun/Creatinine Ratio 34.1 (12.0-20.0); CO2, Blood 28 mmol/L (21-32); Calcium, Blood 8.8 mg/dL (8.5-10.1); Chloride, Blood 100 mmol/L (98-108); Globulin, Blood 3.4 g/dL (2.2-4.0); Glomerular Filtration Rate >60 (60-); Glucose, Blood 93 mg/dL (70-99); Sodium, Blood 133 mmol/L (136-145); Total Protein, Blood 6.8 g/dL (6.4-8.2)
[2019-05-31] MEDS ORDERED: Isosorbide Mono60 MG PO (19:07)
[2019-05-31] MEDS ORDERED: FISH OIL EC 1,1 EAC1 PO (19:12)
[2019-05-31] MEDS ORDERED: CO Q10100 MG PO (19:15)
[2019-05-31 20:10] LABS: International Normalized Ratio 1.89; Prothrombin Time Results 18.9 Sec (9.7-11.5)
[2019-06-01 02:35] LABS: International Normalized Ratio 1.82; Prothrombin Time Results 18.3 Sec (9.7-11.5)
[2019-06-01 02:50] LABS: Thyroid Stimulating Hormone 4.31 uIU/mL (0.360-4.800)
[2019-06-01 02:53] LABS: Troponin I 2.21 ng/mL (0.000-0.040)
--- NOTE | 2019-06-01 05:34 | NUR ---
SHIFT SUMMARY PATIENT ADMITTED FROM ER. ADMISSION COMPLETE. TROPONIN ELEVATED AT 2.21 FROM 1.38 IN ER. PHYSICIAN NOTIFIED, ORDER FOR CARDIOLOGY CONSULT. VSS. NO CHEST PAIN. SLIGHT HEADACHE REPORTED OVERNIGHT. WCTM.
--- NOTE | 2019-06-01 13:40 | NUR ---
PT DISCHARGED THE PT VERBALIZED UNDERSTANDING OF THE DC INSTRUCTIONS, THE PT WAS ENCOURAGED TO CALL HER PCP AND ABSORBER OPERATOR ON SUNDAY TO [facility] RE[facility] APPOINTMENTS, THE PT APPEARED TO BE BREATHING EASILY ON RA AT DISCHARGE PT WAS TRANSFERED VIA WHEELCHAIR ACCOMPANIED BY HER AND THE PROCESS SAFETY ENGINEER
== END 2019-06-01 13:21 | disposition home or self-care (01) ==
LOC: ER 17:37 → MEDS 17:38 → ER 22:32 → MEDS 22:44 → ENPENDDIS 06-01 12:44 → MEDS 06-01 13:21
PROVIDERS: Emergency Medicine; ADMIT Internal Medicine
DX: R07.89 Other chest pain (principal); I25.10 Atherosclerotic heart disease of native coronary artery without angina pectoris; I50.32 Chronic diastolic (congestive) heart failure; I48.0 Paroxysmal atrial fibrillation; D68.59 Other primary thrombophilia; E87.1 Hypo-osmolality and hyponatremia; G20 Parkinson's disease; K21.9 Gastro-esophageal reflux disease without esophagitis; Z86.718 Personal history of other venous thrombosis and embolism; Z86.711 Personal history of pulmonary embolism; Z88.8 Allergy status to other drugs, medicaments and biological substances; Z88.1 Allergy status to other antibiotic agents; Z88.2 Allergy status to sulfonamides; Z79.899 Other long term (current) drug therapy; Z79.82 Long term (current) use of aspirin; Z79.01 Long term (current) use of anticoagulants
CPT/HCPCS: 36415; 71046; 80053; 84443; 84484; 85025; 85610; 93005; 93010; 99285-25; A9270; G0378

== ENCOUNTER 2019-06-10 00:21 | Day surgery (SDC) | payer MEDICARE, BC ==
[~2019-06-10 00:21] MED LIST changes: +CO Q10100 MG PO; +FISH OIL EC 1,1 EAC1 PO; +Isosorbide Mono60 MG PO
== END 2019-06-10 09:32 | disposition home or self-care (01) ==
LOC: ATC 00:21
DX: I25.10 Atherosclerotic heart disease of native coronary artery without angina pectoris (principal); I10 Essential (primary) hypertension; E78.5 Hyperlipidemia, unspecified; I44.7 Left bundle-branch block, unspecified; M19.90 Unspecified osteoarthritis, unspecified site; Z86.711 Personal history of pulmonary embolism; Z79.82 Long term (current) use of aspirin; Z79.899 Other long term (current) drug therapy; Z86.718 Personal history of other venous thrombosis and embolism
CPT/HCPCS: 96372; J1650

== ENCOUNTER 2019-06-11 00:07 | Day surgery (SDC) | payer MEDICARE, BC | END 2019-06-11 09:05 | disposition home or self-care (01) | LOC: ATC 00:07 | DX: I25.10 Atherosclerotic heart disease of native coronary artery without angina pectoris (principal); I25.2 Old myocardial infarction; Z91.011 Allergy to milk products; Z88.2 Allergy status to sulfonamides; Z88.8 Allergy status to other drugs, medicaments and biological substances; Z88.1 Allergy status to other antibiotic agents; Z79.899 Other long term (current) drug therapy; Z79.82 Long term (current) use of aspirin; Z79.01 Long term (current) use of anticoagulants; Z86.718 Personal history of other venous thrombosis and embolism; Z86.711 Personal history of pulmonary embolism | CPT/HCPCS: 96372; J1650 ==

== ENCOUNTER 2019-06-12 00:09 | Day surgery (SDC) | payer MEDICARE, BC ==
--- NOTE | 2019-06-12 10:02 | NUR ---
LARGE HEMATOMA TO RLQ. PT REPORTS SHE WENT IN TO HAVE IT CHECKED. REPORTS SHE "NOTICED IT AROUND 3 HRS AFTER HER INJECTION".
== END 2019-06-12 09:23 | disposition home or self-care (01) ==
LOC: ATC 00:09
DX: I25.10 Atherosclerotic heart disease of native coronary artery without angina pectoris (principal); I44.7 Left bundle-branch block, unspecified; M19.90 Unspecified osteoarthritis, unspecified site; I25.2 Old myocardial infarction; Z88.4 Allergy status to anesthetic agent; I10 Essential (primary) hypertension; G20 Parkinson's disease; E03.9 Hypothyroidism, unspecified; M85.80 Other specified disorders of bone density and structure, unspecified site; G25.81 Restless legs syndrome; Z88.1 Allergy status to other antibiotic agents; Z88.2 Allergy status to sulfonamides; Z88.8 Allergy status to other drugs, medicaments and biological substances; Z91.018 Allergy to other foods; Z79.899 Other long term (current) drug therapy; Z79.82 Long term (current) use of aspirin; Z79.01 Long term (current) use of anticoagulants; Z86.718 Personal history of other venous thrombosis and embolism; Z86.711 Personal history of pulmonary embolism; Z85.820 Personal history of malignant melanoma of skin; Z98.1 Arthrodesis status; Z87.891 Personal history of nicotine dependence
CPT/HCPCS: 96372; J1650

== ENCOUNTER 2020-08-20 22:43 | Emergency (ER) | payer MEDICARE, BC ==
[~2020-08-20] VITALS: Ht 160 cm; Wt 59.0 kg
[2020-08-20 23:31] LABS: BASOPHILS ABSOLUTE AUTO 0.02 K/mm3 (0.00-0.23); BASOPHILS PERCENT AUTO 1 % (0-2); EOSINOPHILS ABSOLUTE AUTO 0.13 K/mm3 (0.00-0.68); EOSINOPHILS PERCENT AUTO 3 % (0-6); Hematocrit 36.6 % (33.0-51.0); Hemoglobin 12.2 g/dL (11.5-16.0); IMMATURE GRAN PERCENT AUTO 0 % (0-1); LYMPHOCYTES ABSOLUTE AUTO 1.49 K/mm3 (0.84-5.20); LYMPHOCYTES PERCENT AUTO 35 % (21-46); MONOCYTES ABSOLUTE AUTO 0.52 K/mm3 (0.16-1.47); MONOCYTES PERCENT AUTO 12 % (4-13); Mean Corpuscular HGB 32.8 pg (26.0-34.0); Mean Corpuscular HGB Conc 33.3 g/dL (31.5-36.5); Mean Corpuscular Volume 98 fL (80-100); Mean Platelet Volume 10.5 fL (9.1-12.4); NEUTROPHILS ABSOLUTE AUTO 2.15 K/mm3 (1.96-9.15); NEUTROPHILS PERCENT AUTO 50 % (41-73); Platelet Count 168 K/mm3 (150-400); RDW Coefficient Variation 12.5 % (11.7-14.2); RDW Standard Deviation 45.2 fL (35.1-46.3); Red Blood Cell Count 3.72 M/mm3 (3.80-5.20); White Blood Cell Count 4.31 K/mm3 (4.00-11.30)
[2020-08-20 23:52] LABS: Alanine Aminotransfer (ALT/SGP 15 U/L (12-78); Albumin, Blood 3.6 g/dL (3.4-5.0); Albumin/Globulin Ratio 1.2 (0.8-1.8); Alk Phos 61 U/L (50-136); Anion Gap 4 mmol/L (6-16); Aspartate Aminotrans (AST/SGOT 45 U/L (12-37); Bilirubin, Total 0.5 mg/dL (0.1-1.0); Blood Urea Nitrogen 11 mg/dL (8-24); Bun/Creatinine Ratio 18.6 (12.0-20.0); CO2, Blood 26 mmol/L (21-32); Calcium, Blood 8.8 mg/dL (8.5-10.1); Chloride, Blood 100 mmol/L (98-108); Creatinine, Blood 0.59 mg/dL (0.40-1.00); Globulin, Blood 3.1 g/dL (2.2-4.0); Glomerular Filtration Rate >60 (60-); Glucose, Blood 98 mg/dL (70-99); Potassium, Blood 4.2 mmol/L (3.5-5.5); Sodium, Blood 130 mmol/L (136-145); Total Protein, Blood 6.7 g/dL (6.4-8.2); Troponin I <0.015 ng/mL (0.000-0.040)
[2020-08-21] MEDS ORDERED: Coumadin2 MG PO (00:04)
[2020-08-21 01:36] LABS: International Normalized Ratio 3.34; Prothrombin Time Results 33.4 Sec (9.7-11.5)
== END 2020-08-21 02:53 | disposition home or self-care (01) ==
LOC: ER 22:43
PROVIDERS: Emergency Medicine; Physician Assistant
DX: R07.9 Chest pain, unspecified (principal); R11.0 Nausea; R42 Dizziness and giddiness; G20 Parkinson's disease; I25.10 Atherosclerotic heart disease of native coronary artery without angina pectoris; K21.9 Gastro-esophageal reflux disease without esophagitis; I48.0 Paroxysmal atrial fibrillation; I50.30 Unspecified diastolic (congestive) heart failure; Z91.02 Food additives allergy status; Z88.2 Allergy status to sulfonamides; Z88.1 Allergy status to other antibiotic agents; Z88.8 Allergy status to other drugs, medicaments and biological substances; Z91.09 Other allergy status, other than to drugs and biological substances; Z88.6 Allergy status to analgesic agent; Z88.4 Allergy status to anesthetic agent; Z79.899 Other long term (current) drug therapy; Z79.01 Long term (current) use of anticoagulants; Z95.5 Presence of coronary angioplasty implant and graft; Z86.73 Personal history of transient ischemic attack (TIA), and cerebral infarction without residual deficits; Z86.718 Personal history of other venous thrombosis and embolism
CPT/HCPCS: 36415; 71046; 80053; 84484; 85025; 85610; 93005; 93010; 99285-25

== ENCOUNTER → 2021-01-25 | Outpatient (CLI) | payer MEDICARE, BC ==
[~2021-01-25] MED LIST changes: +Coumadin2 MG PO
== END | disposition home or self-care (01) ==
LOC: LAB 15:13 → LAB SHORT 15:13
DX: N89.8 Other specified noninflammatory disorders of vagina (principal)
CPT/HCPCS: 87070; 87205